=== PATIENT | male | born 1980 | race Two or more races ===

== ENCOUNTER 2025-03-13 19:37 | Inpatient (IN) | payer OTHER ==
[~2025-03-13] VITALS: Ht 182.9 cm; Wt 94.3 kg
[2025-03-13] MEDS ORDERED: XARELTO10 M1 PO (19:58)
[2025-03-13] MEDS ORDERED: FAMOTIDINE/PF 20 MG in 0.9 % SODIUM CHLORIDE 8 ML IV PUSH STA (20:16)
[2025-03-13] MEDS ORDERED: METRONIDAZOLE/SODIUM CHLORIDE 500 MG/100 ML PIGGYBACK IV ONE (20:30)
[2025-03-13] MEDS ORDERED: DIPHENOXYLATE HCL/ATROPINE 1 UDTAB TABLET PO ONE (20:30)
[2025-03-13] MEDS ORDERED: 0.9 % SODIUM CHLORIDE 1,000 ML IV SCH ×2 (20:30→23:30)
[2025-03-13] MEDS ORDERED: ONDANSETRON HCL 2 MG/ML VIAL IV ONE (20:30)
[2025-03-13 20:58] LABS: BASO % 0.3 % (0.1-1.2); EOS # 0.01 (0.04-0.54); EOS % 0.1 % (0.7-7.0); LYMPH # 1.04 (1.18-3.74); LYMPH % 6.1 % (19.3-53.1); MEAN PLATELET VOLUME 9.80 fl (9.4-12.4); MONO # 0.95 (0.24-0.82); MONO % 5.6 % (4.7-12.5); NEUT # 14.99 (1.56-6.13); NEUT % 87.6 % (34.0-71.1); RED CELL DISTRIBUTION WIDTH 12.5 % (11.6-14.4)
[2025-03-13 21:34] LABS: ALT/SGPT 38.0 U/L (12-78); AST/SGOT 20.0 U/L (15-37); BILIRUBIN TOTAL 0.61 mg/dL (0.3-1.2); BUN CREA RATIO 9.0 (7.0-25.0); CREATININE SERUM 1.13 mg/dL (0.70-1.30); GFR 70.83; GLOBULINA 4.1 G/DL (2.4-3.5); GLUCOSE FASTING 104.0 mg/dL (65-100); OSMOLALITY SERUM 269.0 MOSM/KG (275-295)
[2025-03-13] MEDS ORDERED: PANTOPRAZOLE SODIUM 40 MG in 0.9 % SODIUM CHLORIDE 8 ML IV PUSH SCH (23:26)
[2025-03-13] MEDS ORDERED: CIPROFLOXACIN IN 5 % DEXTROSE 200 ML IV SCH (23:26)
[2025-03-13 23:59] VITALS: BP 100/60; O2SAT 97
[2025-03-14 03:40] LABS: BASO % 0.3 % (0.1-1.2); EOS # 0.03 (0.04-0.54); EOS % 0.3 % (0.7-7.0); LYMPH # 1.20 (1.18-3.74); LYMPH % 11.3 % (19.3-53.1); MEAN PLATELET VOLUME 10.40 fl (9.4-12.4); MONO # 0.75 (0.24-0.82); MONO % 7.1 % (4.7-12.5); NEUT # 8.58 (1.56-6.13); NEUT % 80.7 % (34.0-71.1); RED CELL DISTRIBUTION WIDTH 12.6 % (11.6-14.4)
[2025-03-14 03:42] VITALS: BP 99/59
[2025-03-14 08:20] VITALS: BP 99/62
[2025-03-14] MEDS ORDERED: POTASSIUM CHLORIDE 20MEQ/100ML H2O PB IV NR (12:45)
[2025-03-14] MEDS ORDERED: ACETAMINOPHEN 500 MG GEL..CAP PO PRN (12:45)
[2025-03-14] MEDS ORDERED: RIVAROXABAN 10 MG TAB PO NR (12:50)
[2025-03-14 16:01] VITALS: BP 114/71
[2025-03-14] MEDS ORDERED: LACTOBACILLUS ACIDOPHILUS 1 CAP CAP PO SCH (17:00)
[2025-03-14] MEDS ORDERED: FAMOTIDINE/PF 20 MG/2 ML VIAL IV SCH (21:00)
[2025-03-15 01:56] VITALS: BP 97/62
[2025-03-15 08:34] VITALS: BP 102/68; O2SAT 99
[2025-03-15 08:52] LABS: BASO % 0.6 % (0.1-1.2); EOS # 0.07 (0.04-0.54); EOS % 1.1 % (0.7-7.0); LYMPH # 1.36 (1.18-3.74); LYMPH % 20.8 % (19.3-53.1); MEAN PLATELET VOLUME 11.10 fl (9.4-12.4); MONO # 0.70 (0.24-0.82); MONO % 10.7 % (4.7-12.5); NEUT # 4.35 (1.56-6.13); NEUT % 66.6 % (34.0-71.1); RED CELL DISTRIBUTION WIDTH 12.7 % (11.6-14.4)
[2025-03-15] MEDS ORDERED: RIVAROXABAN 10 MG TAB PO SCH (09:00)
[2025-03-15 09:09] LABS: ERYTHROCYTE SEDIMENTATION RATE 7 mm/hr (0-15)
[2025-03-15 09:31] LABS: ALT/SGPT 26.0 U/L (12-78); AST/SGOT 16.0 U/L (15-37); BILIRUBIN TOTAL 0.48 mg/dL (0.3-1.2); BUN CREA RATIO 7.0 (7.0-25.0); CREATININE SERUM 1.09 mg/dL (0.70-1.30); GFR 73.83; GLOBULINA 2.8 G/DL (2.4-3.5); GLUCOSE FASTING 83.0 mg/dL (65-100); OSMOLALITY SERUM 286.0 MOSM/KG (275-295)
[2025-03-15 17:46] VITALS: BP 104/61
[2025-03-16 03:06] VITALS: BP 125/69; O2SAT 98
[2025-03-16 09:49] VITALS: BP 106/70; O2SAT 98
[2025-03-16] MEDS ORDERED: XARELTO10 MG PO (11:48)
[2025-03-16] MEDS ORDERED: INTESTINEX680 M1 PO (11:48)
[2025-03-16] MEDS ORDERED: METRONIDAZOLE500 MG PO (11:48)
[2025-03-16] MEDS ORDERED: CIPRO500 MG PO (11:48)
== END 2025-03-16 13:02 | disposition home or self-care (01) | DRG 392 ==
LOC: ER 19:37 → MEDJ 23:28
PROVIDERS: General Practice; ADMIT Internal Medicine; ATTEND Internal Medicine
PROC: BW21ZZZ Computerized Tomography (CT Scan) of Abdomen and Pelvis (ICD-10-PCS; 2025-03-13)
PROC: 8E0ZXY6 Isolation (ICD-10-PCS; principal; 2025-03-14)
DX: A09 Infectious gastroenteritis and colitis, unspecified (principal); E86.0 Dehydration; E87.6 Hypokalemia